=== PATIENT | female | born 1990 | race Caucasian/White ===

== ENCOUNTER 2017-10-11 15:53 | Outpatient (CLI) | payer BC, OTHER ==
[2017-10-11 16:49] LABS: Appearance,Urine Clear (Clear); Bacteria,Urine Moderate /hpf; Bilirubin,Urine Negative (Negative); Blood,Urine Negative (Negative); Color,Urine Colorless; Glucose,Urine (UA) Negative (Negative); Ketones,Urine Negative (Negative); Leukocyte Esterase,Urine Small (Negative); Nitrite,Urine Negative (Negative); Protein,Urine Negative (Negative); Specific Gravity,Urine 1.003 (1.001-1.035); Squamous Epithelial Cell,Urine 1 /hpf (0-4); Urobilinogen,Urine <2.0 mg/dL (<2.0); WBC,Urine 2 /hpf (0-5)
[2017-10-11] MEDS ORDERED: ACETAMINOPHEN TAB 325 MG TAB PO STA (17:09)
[2017-10-11 18:50] VITALS: RESP 17; TEMP 97.5
[2017-10-11 18:53] VITALS: BP 111/74; PULSE 90
--- NOTE | 2017-11-09 04:30 | P.MSEPDOC ---
Presenting Problems - Arrival Data Date of Arrival on Unit: 10/11/17 Time of Arrival on Unit: 15:53 Mode of Transport: Ambulatory - Complaint OB-Reason for Admission/Chief Complaint: Headache, Visual Disturbances, Other Comment: mild swelling left upper extremity Medical History - Information : 3 Para: 2 Term: 2 : 0 Abortions: Spontaneous or Elective: 0 Number of Living Children: 2 - Gestational Age Gestational Age by RAINA (wks/days): 35 Weeks and 6 Days Review of Systems - Review of Systems Constitutional: No problems Breast: No problems ENT: No problems Cardiovascular: No problems Respiratory: No problems Gastrointestinal: No problems Genitourinary: No problems Musculoskeletal: No problems Neurological: No problems Skin: No problems Vital Signs - Temperature Temperature: 97.5 F Temperature Source: Temporal Artery Scan - Pulse Pulse Oximetery Pulse Rate: 90 Pulse Assessment Method: Automatic Cuff - Respirations Respiratory Rate: 17 Oxygen Delivery Method: Room Air O2 Sat by Pulse Oximetry: 98 - Blood Pressure Right Arm Blood Pressure: 111/74 Blood Pressure Mean: 86 Blood Pressure Source: Automatic Cuff Medical Screen Scoring (Pre) - Cervical Exam Dilation: Exam Deferred Effacement: Exam Deferred Membranes: Intact - Uterine Contractions Frequency: N/A Duration: N/A Intensity: N/A - Maternal Vital Signs Maternal Temperature: N/A Maternal Blood Pressure: N/A Signs of Preeclampsia: Headache = 1, Visual Disturbance = 1 Maternal Respirations: N/A - Pain Assessment Pain Location and Character: Right, Head Pain Scale Used: Numeric (1 - 10) Pain Intensity: 5 Pain Management Goal: 3 Pain Description: *Acute, Throbbing Pain Radiation Location: n/a Pain Frequency: Intermittent Pain Duration: 1 Pain Duration Units: Days Pain Behavior: Photophobic, Vocalization Effects of Pain: none Pain Aggravating Factors: Bright Light Pharmacological Interventions: PRN Medication Non-Pharmacological Interventions: Darkened Room - Maternal Trauma Maternal Trauma: N/A - Assessment Baseline FHR: 140 Heart Rate - NICHD Category: Category I (Normal) = 0 NST: Reactive Position: N/A Station: N/A - Total Score Total Score (Pre): 2 - Level of Risk Level of Risk: Low (0-5) Physician Notification (Pre) - Physician Notified Physician Notified Date: 10/11/17 Physician Notified Time: 16:20 Physician/Practitioner Notifed:: Isabela Spoke With: Isabela New Order Received: Yes (U/A, serial blood pressures.) - Notification Comment Comment: Call with U/A results. Medical Screen Scoring (Post) - Cervical Exam Dilation: Exam Deferred Effacement: Exam Deferred Membranes: Intact - Uterine Contractions Frequency: N/A Duration: N/A Intensity: N/A - Maternal Vital Signs Maternal Temperature: N/A Maternal Blood Pressure: N/A Signs of Preeclampsia: Headache = 1, Visual Disturbance = 1 Maternal Respirations: N/A - Pain Assessment Pain Location and Character: Right, Head Pain Scale Used: Numeric (1 - 10) Pain Intensity: 7 Pain Management Goal: 3 Pain Description: *Acute, Throbbing Pain Radiation Location: n/a Pain Frequency: Intermittent Pain Duration: 1 Pain Duration Units: Days Pain Behavior: Vocalization Effects of Pain: none Pain Aggravating Factors: None Pharmacological Interventions: PRN Medication Non-Pharmacological Interventions: Darkened Room - Maternal Trauma Maternal Trauma: N/A - Assessment Heart Rate: 140 Heart Rate - NICHD Category: Category I (Normal) = 0 NST: Reactive Position: N/A Station: N/A - Total Score Total Score (Post): 2 - Post Treatment Level of Risk Post Treatment Level of Risk: Low (0-5) Physician Notification (Post) - Physician Notified Physician Notified Date: 10/11/17 Physician Notified Time: 16:50 Physician/Practitioner Notified:: Isabela Spoke With: Isabela New Order Received: Yes (Tylenol 650mg once and discharge order) Disposition - Disposition OB Disposition: Discharge to home Discharge Date: 10/11/17 Discharge Time: 17:35 I agree with the RN Medical Screening Exam: Yes Risk & Benefit of care provided described in d/c instruction: No Diagnosis: RELATED CONDITIONS, UNSPECIFIED, THIRD TRIMESTER
== END 2017-10-11 17:35 | disposition home or self-care (01) ==
LOC: FBPOP 15:53
PROVIDERS: ATTEND Obstetrics & Gynecology
DX: O99.89 Other specified diseases and conditions complicating pregnancy, childbirth and the puerperium (principal); R51 Headache; H53.8 Other visual disturbances; M79.89 Other specified soft tissue disorders; Z3A.35 35 weeks gestation of pregnancy
CPT/HCPCS: 59025; 81001; 99213

== ENCOUNTER 2017-10-29 16:42 | Outpatient (CLI) | payer BC ==
[2017-10-29 18:55] VITALS: BP 135/88; PULSE 100; RESP 16; TEMP 97.9
--- NOTE | 2017-11-18 13:45 | P.MSEPDOC ---
Presenting Problems - Arrival Data Date of Arrival on Unit: 10/29/17 Time of Arrival on Unit: 16:42 Mode of Transport: Ambulatory - Complaint OB-Reason for Admission/Chief Complaint: Possible Onset of Labor Medical History - Information : 3 Para: 2 Term: 2 : 0 Abortions: Spontaneous or Elective: 0 Number of Living Children: 2 - Gestational Age Gestational Age by RAINA (wks/days): 38 Weeks and 3 Days Review of Systems - Review of Systems Constitutional: No problems Breast: No problems ENT: No problems Cardiovascular: No problems Respiratory: No problems Gastrointestinal: No problems Genitourinary: No problems Musculoskeletal: No problems Neurological: No problems Skin: No problems Vital Signs - Temperature Temperature: 97.9 F Temperature Source: Temporal Artery Scan - Pulse Right Sitting Pulse Rate: 100 Pulse Assessment Method: Automatic Cuff - Respirations Respiratory Rate: 16 Oxygen Delivery Method: Room Air - Blood Pressure Right Arm Blood Pressure: 135/88 Blood Pressure Mean: 103 Blood Pressure Source: Automatic Cuff Medical Screen Scoring (Pre) - Cervical Exam Dilation: 1-3 cm = 1 Membranes: Intact - Uterine Contractions Frequency: > or = 36 weeks =2 Duration: > 40 seconds = 2 - Maternal Vital Signs Maternal Temperature: N/A Maternal Blood Pressure: N/A Signs of Preeclampsia: N/A Maternal Respirations: N/A - Pain Assessment Pain Location and Character: Abdomen Pain Scale Used: Numeric (1 - 10) Pain Intensity: 4 Pain Management Goal: 7 Pain Description: *Acute Pain Frequency: Intermittent Pain Duration Units: Hours Pain Behavior: None Exhibited - Assessment Baseline FHR: 130 Heart Rate - NICHD Category: Category I (Normal) = 0 NST: Reactive Position: N/A Station: N/A - Total Score Total Score (Pre): 5 - Level of Risk Level of Risk: Low (0-5) Physician Notification (Pre) - Physician Notified Physician Notified Date: 10/29/17 Physician Notified Time: 18:18 Physician/Practitioner Notifed:: Conner New Order Received: Yes - Notification Comment Comment: Pt requests to walk for another hour, and be rechecked in 1 hour, if no change pt may be d/c home Disposition - Disposition Discharge Date: 10/29/17 Discharge Time: 19:36 I agree with the RN Medical Screening Exam: Yes Risk & Benefit of care provided described in d/c instruction: Yes Diagnosis: FALSE LABOR AT OR AFTER 37 COMPLETED WEEKS OF GESTATION
== END 2017-10-29 19:36 | disposition home or self-care (01) ==
LOC: FBPOP 16:42
PROVIDERS: ATTEND Obstetrics & Gynecology
DX: O47.1 False labor at or after 37 completed weeks of gestation (principal); Z3A.38 38 weeks gestation of pregnancy
CPT/HCPCS: 59025; 84112; 99213

== ENCOUNTER 2017-11-11 23:59 | Outpatient (CLI) | payer BC ==
[2017-11-12 04:12] VITALS: BP 128/80; PULSE 90; RESP 18; TEMP 97.3
--- NOTE | 2018-01-27 09:42 | P.MSEPDOC ---
Presenting Problems - Arrival Data Date of Arrival on Unit: 11/12/17 Time of Arrival on Unit: 23:59 Mode of Transport: Wheelchair Medical History - Information : 3 Para: 2 Term: 2 : 0 Abortions: Spontaneous or Elective: 0 Number of Living Children: 2 - Gestational Age Gestational Age by RAINA (wks/days): 40 Weeks and 3 Days Vital Signs - Temperature Temperature: 97.3 F Temperature Source: Temporal Artery Scan - Pulse Right Pulse Oximetery Pulse Rate: 90 Pulse Assessment Method: Pulse Oximetry - Respirations Respiratory Rate: 18 Oxygen Delivery Method: Room Air O2 Sat by Pulse Oximetry: 100 - Blood Pressure Right Arm Blood Pressure: 128/80 Blood Pressure Mean: 96 Blood Pressure Source: Automatic Cuff Medical Screen Scoring (Post) - Cervical Exam Dilation: 1-3 cm = 1 Effacement: More than 50% = 2 Membranes: Intact - Uterine Contractions Frequency: > or = 36 weeks =2 Duration: > 40 seconds = 2 Intensity: N/A - Maternal Vital Signs Maternal Temperature: N/A Maternal Blood Pressure: N/A Signs of Preeclampsia: N/A Maternal Respirations: N/A - Pain Assessment Pain Location and Character: Abdomen Pain Scale Used: Numeric (1 - 10) Pain Intensity: 6 Pain Management Goal: 2 Pain Description: *Acute, Cramping Pain Radiation Location: none Pain Frequency: Constant Pain Duration: 5 Pain Duration Units: Hours Pain Behavior: Vocalization Effects of Pain: none Pain Aggravating Factors: None Pharmacological Interventions: Discuss Pain Med Options Non-Pharmacological Interventions: Reduce Environmental Stimuli - Total Score Total Score (Post): 7 - Post Treatment Level of Risk Post Treatment Level of Risk: Medium (6-9) Physician Notification (Post) - Physician Notified Physician Notified Date: 11/12/17 Physician Notified Time: 01:16 Physician/Practitioner Notified:: alexis Spoke With: alexis New Order Received: Yes - Notification Comment Comment: Pt in Triage for rule out labor. no change after 2 hours. pt discharged home, has appointment on 11/13/17. instructed to return if contractions become closer or stronger. Disposition - Disposition OB Disposition: Discharge to home Discharge Date: 11/12/17 Discharge Time: 02:20 I agree with the RN Medical Screening Exam: Yes Risk & Benefit of care provided described in d/c instruction: Yes Diagnosis: FALSE LABOR AT OR AFTER 37 COMPLETED WEEKS OF GESTATION
== END 2017-11-12 02:20 | disposition home or self-care (01) ==
LOC: FBPOP 23:59
PROVIDERS: ATTEND Obstetrics & Gynecology Obstetrics
DX: O47.1 False labor at or after 37 completed weeks of gestation (principal); Z3A.40 40 weeks gestation of pregnancy
CPT/HCPCS: 59025; 99213

== ENCOUNTER 2017-11-12 10:04 | Inpatient (IN) | payer BC ==
[2017-11-12] MEDS ORDERED: LIDOCAINE 1% (PF) 10 MG/ML (30 ML SDV) SQ PRN (10:35)
[2017-11-12] MEDS ORDERED: TERBUTALINE 1 MG/ML VIAL SQ PRN (10:35)
[2017-11-12] MEDS ORDERED: METHYLERGONOVINE 0.2 MG/ML 1 ML AMP IM PRN (10:35)
[2017-11-12] MEDS ORDERED: OXYTOCIN 10 UNIT/ML 1 ML VIAL IM PRN (10:35)
[2017-11-12] MEDS ORDERED: CARBOPROST TROMETHAMINE 250 MCG/ML 1 ML AMP IM PRN (10:35)
[2017-11-12] MEDS ORDERED: OXYTOCIN 20 UNITS/1000 ML NS 1,000 ML IV SCH ×2 (10:45→16:30)
[2017-11-12] MEDS: LACTATED RINGERS 1,000 ML IV SCH ×2 (11:07→13:19)
[2017-11-12] MEDS ORDERED: BUTORPHANOL 1 MG/ML 1 ML VIAL IV PRN (11:16)
[2017-11-12 11:17] LABS: Basophils # (A) 0.1 k/uL (0-0.2); Basophils % (A) 1 %; Eosinophils # (A) 0.1 k/uL (0-0.7); Eosinophils % (A) 1 %; HCT 38.1 % (34.0-46.0); HGB 12.2 gm/dL (11.4-16.0); Lymphocytes # (A) 1.9 k/uL (1.0-4.8); Lymphocytes % (A) 17 %; MCH 27.8 pg (25.0-35.0); MCHC 32.1 g/dL (31.0-37.0); MCV 86.6 fL (80.0-100.0); Mean Platelet Volume 10.5; Monocytes # (A) 0.6 k/uL (0-1.0); Monocytes % (A) 5 %; Neutrophils # (A) 8.7 k/uL (1.3-7.7); Neutrophils % (A) 76 %; Platelet Count 194 k/uL (150-450); RDW 14.8 % (11.5-15.5); WBC 11.5 k/uL (3.8-10.6)
[2017-11-12 11:18] VITALS: BMI 29.1
--- NOTE | 2017-11-12 11:21 | P.HPOB ---
History of Present Illness H&P Date: 11/12/17 Chief Complaint: 40 and 3/7 weeks, labor The patient is a 26-year-old 3 para 2001 admitted at 40-3/7 weeks as established by last menstrual period and confirmed by 19 week ultrasound. She is admitted in labor with her cervix being 5+ centimeters dilated. She was in triage for several hours last night at which time she had not made any cervical change and was discharged home. Her has been entirely uncomplicated and group B strep status is negative. She is known to be Rh- and received RhoGAM at 28 weeks. Obstetrical history: 3 para 2001 with 2 term deliveries without complications. EDC of 11/09/2017 was established by last menstrual period and confirmed by 19 week ultrasound. Laboratory workup demonstrates a blood type of O- with a negative antibody screen. Rubella status is immune. All other laboratory workup was within normal limits. One hour Glucola was normal and group B strep status is negative. Gynecologic history: Unremarkable with no history of any infections to include STDs. Review of Systems Review of systems is confined to history of present illness. Past Medical History Past Medical History: No Reported History History of Any Multi-Drug Resistant Organisms: MRSA Date of last positivie culture/infection: 2008 MDRO Source:: abdomen/back - boil Past Surgical History: No Surgical Hx Reported Smoking Status: Never smoker Medications and Allergies Home Medications Medication Instructions Recorded Confirmed Type Pnv,Calcium 72/Iron/Folic Acid 1 tab PO DAILY 10/11/17 11/12/17 History [ Plus Tablet] Allergies Allergy/AdvReac Type Severity Reaction Status Date / Time No Known Allergies Allergy Verified 11/12/17 00:13 Exam - Vital Signs Vital signs: Vital Signs Temp Pulse Resp BP 11/12/17 10:40 97.8 F 88 14 118/70 Intake and Output 11/11/17 11/12/17 11/12/17 22:59 06:59 14:59 Other: Weight 84.368 kg Patient Weight 11/13/17 06:59 Weight 84.368 kg In general, this is a well-developed, well-nourished white female in no acute distress. Her heart has a regular rhythm and rate without murmur. Her lungs are clear to auscultation bilaterally in all miranda. Her abdomen is gravid, nondistended, has normal active bowel sounds, is soft, nontender, and without any palpable masses aside from the uterine fundus. Her extremities are without any cyanosis, clubbing, or edema and are nontender to palpation bilaterally. Digital cervical examination demonstrates her cervix to be approximate 5 cm dilated, 70% effaced, the vertex in presentation at -1-2 station. Artificial rupture of membranes is carried out demonstrating clear fluid. Assessment and Plan (1) Rh negative, maternal Current Visit: No Status: Acute Code(s): O09.899 - SUPERVISION OF OTHER HIGH RISK PREGNANCIES, UNSP TRIMESTER SNOMED Code(s): 115373620 (2) Spontaneous onset of labor Current Visit: No Status: Acute Code(s): LMW5715 - SNOMED Code(s): 32847353 Plan: Patient is admitted for active management of labor. She has undergone artificial rupture of membranes. Observation will be carried out over the next hour or 2. Should she make no significant change or labor did not move along, Pitocin augmentation will be added. She is a good candidate for either IV or epidural analgesia, whichever she may choose. Close maternal and surveillance will be practiced.
[2017-11-12] MEDS ORDERED: BUPIVACAINE (PF) 0.25% 30 ML VIAL ONE (13:02)
[2017-11-12] MEDS ORDERED: SODIUM CHLORIDE 0.9% 100 ML BAG ONE (13:02)
[2017-11-12] MEDS ORDERED: fentaNYL (PF) 50 MCG/ML 5 ML AMP ONE (13:02)
[2017-11-12] MEDS ORDERED: BUPIVACAINE (PF) 0.25% 25 ML, fentaNYL (PF) 200 MCG in SODIUM CHLORIDE 0.9% 71 ML EPIDURAL ONE (13:25)
[2017-11-12] MEDS ORDERED: ACETAMINOPHEN TAB 325 MG TAB PO PRN (16:17)
[2017-11-12] MEDS ORDERED: BENZOCAINE/MENTHOL SPRAY 1 GM/SPRAY AEROSOL TOPICAL PRN (16:17)
[2017-11-12] MEDS ORDERED: diphenhydrAMINE 25 MG CAP PO PRN (16:17)
[2017-11-12] MEDS ORDERED: ZOLPIDEM 5 MG TAB PO PRN (16:17)
[2017-11-12] MEDS ORDERED: LANOLIN CREAM 5 GM TUBE TOPICAL PRN (16:17)
[2017-11-12] MEDS ORDERED: WITCH HAZEL 1 EACH MED..PAD TOPICAL PRN (16:17)
[2017-11-12] MEDS ORDERED: SIMETHICONE 80 MG CHEWABLE PO PRN (16:17)
[2017-11-12] MEDS ORDERED: diphenhydrAMINE 50 MG CAP PO PRN (16:17)
[2017-11-12] MEDS ORDERED: diphenhydrAMINE 50 MG/ML 1 ML VIAL IVP PRN ×2 (16:17)
[2017-11-12] MEDS ORDERED: HYDROCORTISONE 2.5% RECTAL CREAM 30 GM TUBE RECTAL PRN (16:17)
[2017-11-12] MEDS ORDERED: Acetaminophen-Codeine 300-30mg TAB PO PRN ×2 (16:17)
--- NOTE | 2017-11-12 16:21 | P.PROBDLV ---
Vaginal Delivery Note - . Vaginal Delivery Note: The patient is a 26-year-old 3 para 2001 admitted at 40-3/7 weeks by good dating parameters. She is admitted in early active labor with all signs reassuring. Her has been uncomplicated though she is Rh- and received RhoGAM at 28 weeks. Group B strep status is negative. On labor and delivery, she had artificial rupture of membranes carried out demonstrating clear fluid. She had an epidural catheter placed at approximately 8 cm of dilation at which time contractions slow down. Pitocin augmentation was started and she progressed over the next hour or so to complete and +1 station. She pushed over the course of approximately 4 or 5 contractions to a normal spontaneous vaginal delivery of a viable 10 lbs. 8 oz. baby boy with Apgars of 9 at 1 minute and 9 at 5 minutes delivered in the left occiput anterior position. The placenta was delivered spontaneously, intact, and grossly normal though very large with a grossly normal three-vessel cord inserted approximately 3 cm from the margin of the placental disc. There was a small second-degree midline laceration noted over the site of a previous laceration which was repaired in standard fashion using 3-0 chromic catgut without difficulty. Estimated blood loss for the case was approximately 300 mL. There were no complications. All sponge, instrument, and needle counts were correct. Both mother and are resting comfortably in recovery.
[2017-11-12] MEDS: SENNOSIDES-DOCUSATE SODIUM 1 EACH TAB PO SCH (20:12)
[2017-11-12] MEDS: IBUPROFEN 600 MG TAB PO PRN (23:36)
[2017-11-13] MEDS: IBUPROFEN 600 MG TAB PO PRN ×2 (07:41→15:28)
[2017-11-13] MEDS: SENNOSIDES-DOCUSATE SODIUM 1 EACH TAB PO SCH (07:41)
--- NOTE | 2017-11-13 08:45 | P.DS ---
Providers Date of admission: 11/12/17 10:34 Expected date of discharge: 11/13/17 Attending physician: Sumit Ramirez Primary care physician: Stated None - Discharge Diagnosis(es) (1) Rh negative, maternal Current Visit: Yes Status: Acute (2) Spontaneous onset of labor Current Visit: Yes Status: Acute (3) Normal spontaneous vaginal delivery Current Visit: Yes Status: Acute Hospital Course: The patient is a 26-year-old 3 para 2 scissors or 2 admitted at 40-3/7 weeks by good dating parameters. She is admitted in early active labor with all signs reassuring. Her has been uncomplicated and group B strep status is negative. She was Rh- and received RhoGAM at 28 weeks. On labor and delivery, she underwent artificial rupture of membranes demonstrating clear fluid. She had an epidural catheter placed for analgesia but was making relatively slow progress following the epidural. As result, she had Pitocin augmentation started and the progressed to complete where after she pushed to a normal spontaneous vaginal delivery of a viable 10 lbs. 8 oz. baby boy with Apgars of 9 at 1 minute and 9 at 5 minutes. Her course was unremarkable with vital signs remaining stable and her temperature was afebrile throughout. She was deemed stable for discharge by day #1 and was discharged home to follow-up in the office in 6 weeks' time routinely. Discharge instructions included calling for any significantly increased bleeding or foul-smelling lochia, significantly increased fever or abdominal pain, perineal complaints, breast complaints, or anything else that concerned her. She was additionally instructed to have nothing in the vagina for at least 6 weeks time to include intercourse. She understood her instructions and agrees to follow up as noted above. Discharge medications included only over- the-counter analgesic pain medications as well as continued vitamins as she has opted to breast-feed. Maternal blood type is O- and cord blood was sent for evaluation for the necessity of RhoGAM prior to discharge. Rubella status is immune. Procedures: #1. Artificial rupture of membranes #2. Epidural analgesia #3. Pitocin augmentation #4. Normal spontaneous vaginal delivery #5. Repair of perineal laceration Patient Condition at Discharge: Good Plan - Discharge Summary Discharge Rx Participant: Yes New Discharge Prescriptions: No Action Pnv,Calcium 72/Iron/Folic Acid [ Plus Tablet] 1 tab PO DAILY Discharge Medication List Pnv,Calcium 72/Iron/Folic Acid [ Plus Tablet] 1 tab PO DAILY 10/11/17 [ History] Follow up Appointment(s)/Referral(s): Sumit Ramirez MD [STAFF PHYSICIAN] - 6 Weeks Discharge Disposition: HOME SELF-CARE
[2017-11-13] MEDS ORDERED: Rhogam IMMUNE GLOBULIN 1,500 UNIT/1 ML IM ONE (11:05)
[2017-11-13 16:00] VITALS: BP 127/72; PULSE 72; RESP 18; TEMP 97
== END 2017-11-13 16:30 | disposition home or self-care (01) | DRG 775 ==
LOC: FBPOP 10:04 → 4FBP 10:34
PROVIDERS: ADMIT Obstetrics & Gynecology; ATTEND Obstetrics & Gynecology
PROC: 10E0XZZ Delivery of Products of Conception, External Approach (ICD-10-PCS; principal; 2017-11-12)
PROC: 0KQM0ZZ Repair Perineum Muscle, Open Approach (ICD-10-PCS; 2017-11-12)
PROC: 10907ZC Drainage of Amniotic Fluid, Therapeutic from Products of Conception, Via Natural or Artificial Opening (ICD-10-PCS; 2017-11-12)
PROC: 00HU33Z Insertion of Infusion Device into Spinal Canal, Percutaneous Approach (ICD-10-PCS; 2017-11-12)
PROC: 3E0R3NZ Introduction of Analgesics, Hypnotics, Sedatives into Spinal Canal, Percutaneous Approach (ICD-10-PCS; 2017-11-12)
DX: O48.0 Post-term pregnancy (principal); O36.63X0 Maternal care for excessive fetal growth, third trimester, not applicable or unspecified; O70.1 Second degree perineal laceration during delivery; Z37.0 Single live birth; Z3A.40 40 weeks gestation of pregnancy; Z67.41 Type O blood, Rh negative; Z86.14 Personal history of Methicillin resistant Staphylococcus aureus infection
CPT/HCPCS: 59025; 85025; 88307; 99213

== ENCOUNTER → 2024-02-18 | Outpatient (CLI) | payer BC ==
--- NOTE | 2024-02-19 12:18 | MM ---
Reason for Exam: Screening (asymptomatic). Baseline mammogram. Patient History: Menarche at age 11. First Full-Term at age 22. Paternal aunt had ovarian cancer, age 45. Maternal aunt had breast cancer, age 45. Last menstrual period: 02/12/2024 Risk Values: Anjana 5 year model risk: 0.3%. NCI Lifetime model risk: 9.2%. Prior Study Comparison: Patient's first Mammogram. Tissue Density: The breasts are extremely dense, which lowers the sensitivity of mammography. Findings: Analyzed By CAD. The pattern is symmetrical. No suspicious groups of microcalcifications, spiculated or lobular masses, architectural distortion or other secondary signs of malignancy are mammographically apparent. Overall Assessment: Negative, BI-RAD 1 Management: Screening Mammogram of both breasts at age 38. A negative mammogram report should not preclude additional follow up of suspicious palpable abnormalities. Patient should continue monthly self breast exam. A clinical breast exam by your physician is recommended on an annual basis and results should be correlated with mammographic findings. Note on Anjana scores and lifetime risk: 1. A Anjana score greater than 3% is considered moderate risk. If this is the case, consider specialist referral to assess eligibility for a risk reducing agent. 2. If overall lifetime risk for the development of breast cancer is 20% or higher, the patient may qualify for future screening with alternating mammogram and breast MRI. Electronically signed and approved by: Carlos Suggs D.O. Radiologis
== END | disposition home or self-care (01) ==
LOC: RADMAMWWP 15:44
PROVIDERS: ATTEND Obstetrics & Gynecology
DX: Z12.31 Encounter for screening mammogram for malignant neoplasm of breast (principal); Z80.3 Family history of malignant neoplasm of breast
CPT/HCPCS: 77063; 77067

== ENCOUNTER → 2024-04-20 | Outpatient (CLI) | payer BC ==
[2024-04-20 10:15] LABS: Basophils # (A) 0.04 X 10*3/uL (0.00-0.10); Basophils % (A) 0.6 %; Eosinophils # (A) 0.27 X 10*3/uL (0.04-0.35); Eosinophils % (A) 4.2 %; HCT 45.2 % (37.2-46.3); HGB 14.2 g/dL (12.0-15.0); Lymphocytes # (A) 2.12 X 10*3/uL (0.90-5.00); Lymphocytes % (A) 33.2 %; MCH 28.5 pg (27.0-32.0); MCHC 31.4 g/dL (32.0-37.0); MCV 90.6 FL (80.0-97.0); Mean Platelet Volume 11.7 FL (9.5-12.2); Monocytes # (A) 0.48 X 10*3/uL (0.20-1.00); Monocytes % (A) 7.5 %; NRBC Per 100 WBC 0 X 10*3/uL (0.00-0.01); Neutrophils # (A) 3.46 X 10*3/uL (1.80-7.70); Neutrophils % (A) 54.3 %; Platelet Count 241 X 10*3/uL (140-440); RBC 4.99 X 10*6/uL (4.10-5.20); RDW 12.5 % (11.5-14.5); WBC 6.38 X 10*3/uL (4.50-10.00)
[2024-04-20 10:35] LABS: Chol/HDL Ratio 3.58 Ratio; LDL Cholesterol,Calculated 97.7 mg/dL (0.0-131.0); VLDL Calculation 16.16 mg/dL (5.00-40.00)
[2024-04-20 10:36] LABS: ALT 30 U/L (8-44); AST 25 U/L (13-35); Albumin 4.4 g/dL (3.8-4.9); Albumin/Globulin Ratio 1.83 Ratio (1.60-3.17); Alkaline Phosphatase 95 U/L (41-126); BUN/Creat Ratio 22.33 Ratio (12.00-20.00); Blood Urea Nitrogen 13.4 mg/dL (9.0-27.0); Carbon Dioxide 24.9 mmol/L (21.6-31.8); Chloride 106 mmol/L (96-109); Globulin 2.4 g/dL (1.6-3.3); Glucose 105 mg/dL (70-110); Potassium 4.3 mmol/L (3.5-5.5); Sodium 141 mmol/L (135-145); Total Bilirubin <0.2 mg/dL (0.3-1.2); Total Protein 6.8 g/dL (6.2-8.2)
== END | disposition home or self-care (01) ==
LOC: LABWHC1 08:19
PROVIDERS: ATTEND Internal Medicine
DX: Z00.00 Encounter for general adult medical examination without abnormal findings (principal)
CPT/HCPCS: 36415; 80053; 80061; 84443; 85025

== ENCOUNTER → 2025-05-14 | Outpatient (CLI) | payer BC ==
--- NOTE | 2025-05-14 13:37 | MM ---
Reason for Exam: Clinical finding. Last mammogram was performed 1 year(s) and 3 month(s) ago. Patient History: Menarche at age 11. First Full-Term at age 22. Paternal aunt had ovarian cancer, age 45. Maternal aunt had breast cancer, age 45. Risk Values: Anjana 5 year model risk: 0.3%. NCI Lifetime model risk: 9.2%. Tissue Density: There are scattered areas of fibroglandular density. Findings: Analyzed By CAD. Stable asymmetric prominent tissue upper outer aspect right breast. No obvious new mass or distortion in either breast. Overall Assessment: Incomplete: need additional imaging evaluation, BI-RAD 0 Management: Diagnostic Breast Ultrasound of the right breast. . Results were given to the patient verbally at the time of exam. Patient should continue monthly self-breast exams. A clinical breast exam by your physician is recommended on an annual basis. This exam should not preclude additional follow-up of suspicious palpable abnormalities. Note on Anjana scores and lifetime risk: 1. A Anjana score greater than 3% is considered moderate risk. If this is the case, consider specialist referral to assess eligibility for a risk reducing agent. 2. If overall lifetime risk for the development of breast cancer is 20% or higher, the patient may qualify for future screening with alternating mammogram and breast MRI. [facility], , 05/14/2025 1:34 PM. Electronically signed and approved by: Uche Sanchez M.D.
--- NOTE | 2025-05-14 13:56 | USB ---
Reason for Exam: Clinical finding. Patient History: Menarche at age 11. First Full-Term at age 22. Hormonal Contraceptives for 6 years from age 15 until age 21. Paternal aunt had ovarian cancer, age 45. Maternal aunt had breast cancer, age 45. Maternal aunt had breast cancer, age 45. Risk Values: Anjana 5 year model risk: 0.3%. NCI Lifetime model risk: 9.2%. Technique: Method: Targeted. Prior Study Comparison: 02/18/2024 Bilateral MG 3D screening mammo w/cad, [facility]. Findings: The area of palpable concern of the right breast, the axilla of the right breast and the retroareolar of the right breast were scanned. Targeted ultrasound. No concerning solid or cystic masses are identified. Oval circumscribed isoechoic area is thought to reflect prominent tissue at level of palpable abnormality. No suspicious axillary adenopathy is seen. Overall Assessment: Negative, BI-RAD 1 Management: Screening Mammogram of both breasts at age 38. Manage patient's symptoms clinically. A clinical breast exam by your physician is recommended on an annual basis and results should be correlated with mammographic findings. This exam should not preclude additional follow-up of suspicious palpable abnormalities. Results were given to the patient verbally at the time of exam. [facility], , 05/14/2025 1:51 PM. Electronically signed and approved by: Uche Sanchez M.D.
== END | disposition home or self-care (01) ==
LOC: RADMAMWWP 13:13
PROVIDERS: ATTEND Obstetrics & Gynecology
DX: R92.323 Mammographic fibroglandular density, bilateral breasts (principal); N64.4 Mastodynia; N63.10 Unspecified lump in the right breast, unspecified quadrant; Z92.0 Personal history of contraception; Z85.3 Personal history of malignant neoplasm of breast; Z80.3 Family history of malignant neoplasm of breast
CPT/HCPCS: 77062; 77066